=== PATIENT | male | born 1985 | race Caucasian/White ===

== ENCOUNTER 2019-12-08 16:45 | Emergency (ER) | payer BC, OTHER ==
[~2019-12-08] VITALS: Ht 175.3 cm; Wt 72.7 kg
[~2019-12-08 16:45] MED LIST: BLEOS OP
[2019-12-08] MEDS ORDERED: HYDROcodone/acetaminophen 5mg/325mg tablet PO ONE (16:55)
[2019-12-08] MEDS ORDERED: ondansetron 4mg rapidly disintigrating tab PO ONE (16:55)
[2019-12-08 18:14] VITALS: BP 118/68
== END 2019-12-08 18:15 | disposition home or self-care (01) ==
LOC: ER 16:46
DX: S01.01XA Laceration without foreign body of scalp, initial encounter (principal); R55 Syncope and collapse; Z79.899 Other long term (current) drug therapy; W22.8XXA Striking against or struck by other objects, initial encounter; Y93.89 Activity, other specified; Y92.89 Other specified places as the place of occurrence of the external cause; Y99.8 Other external cause status
CPT/HCPCS: 12001; 70450; 99284